=== PATIENT | female | born 1980 | race Caucasian/White ===

== ENCOUNTER 2017-10-03 13:48 | Inpatient (IN) | payer OTHER ==
--- NOTE | 2017-10-03 14:05 | EDPHY ---
H & P Source: Patient Exam Limitations: No limitations - Personal History Current Tetanus/Diphtheria Vaccine: Yes - Medical/Surgical History Hx Asthma: No Hx Chronic Respiratory Disease: No Hx Diabetes: No Hx Cardiac Disease: No Hx Renal Disease: No Hx Cirrhosis: No Hx Alcoholism: No Hx HIV/AIDS: No - Family History Significant Family History: No pertinent family hx - Social History Smoking Status: Never smoked Alcohol Use: Heavy Drug Use: None Time Seen by Provider: 10/03/17 13:55 HPI/ROS: CHIEF COMPLAINT: Cutting, depression HISTORY OF PRESENT ILLNESS: The patient is a 37-year-old female with a history of depression and alcoholism who is been sober since 2011. Last week she and her went to visit her family which caused some triggers and she began drinking again. Yesterday she became despondent and has not been talking to her . She began cutting. Today she has several deeper new cuts. One on her hand and one on her forearm. She is not answering questions. denies drug use. She has multiple abrasions elsewhere. REVIEW OF SYSTEMS: Constitutional: denies: chills, fever, recent illness, recent injury EENTM: denies: blurred vision, double vision, nose congestion Respiratory: denies: cough, shortness of breath Cardiac: denies: chest pain, irregular heart rate, lightheadedness, palpitations Gastrointestinal/Abdominal: denies: abdominal pain, diarrhea, nausea, vomiting, blood streaked stools Genitourinary: denies: dysuria, frequency, hematuria, pain Musculoskeletal: denies: joint pain, muscle pain Skin: See HPI Neurological: denies: headache, numbness, paresthesia, tingling, dizziness, weakness Hematologic/Lymphatic: denies: blood clots, easy bleeding, easy bruising Immunologic/allergic: denies: HIV/AIDS, transplant EXAM: GENERAL: Not cooperative, multiple abrasions HEAD: Atraumatic, normocephalic. EYES: Pupils equal round and reactive to light, extraocular movements intact, sclera anicteric, conjunctiva are normal. ENT: TMs normal, nares patent, oropharynx clear without exudates. Moist mucous membranes. NECK: Normal range of motion, supple without lymphadenopathy or JVD. LUNGS: Breath sounds clear to auscultation bilaterally and equal. No wheezes rales or rhonchi. HEART: Regular rate and rhythm without murmurs, rubs or gallops. ABDOMEN: Soft, nontender, normoactive bowel sounds. No guarding, no rebound. No masses appreciated. BACK: No CVA tenderness, no spinal tenderness, step-offs or deformities EXTREMITIES: Normal range of motion, no pitting or edema. No clubbing or cyanosis. NEUROLOGICAL: Cranial nerves II through XII grossly intact. Normal speech, normal gait. 5/5 strength, normal movement in all extremities, normal sensation PSYCH: Not febrile resistant to examination SKIN: Multiple shallow abrasions/self cutting. Deeper lacerations to left forearm and right hand dorsally. (Omero Smith) Constitutional: Initial Vital Signs Temperature (C) 37.1 C 10/03/17 14:09 Heart Rate 105 H 10/03/17 14:09 Respiratory Rate 18 10/03/17 14:09 Blood Pressure 120/77 10/03/17 14:09 O2 Sat (%) 94 10/03/17 14:09 O2 Delivery Mode Room Air O2 (L/minute) 98 Allergies/Adverse Reactions: erythromycin base [Erythromycin Base] Allergy (Verified 10/04/17 11:44) SWELLING/RASH Home Medications: Medication Instructions Recorded Levothyroxine [Synthroid 25 mcg 25 mcg PO DAILY06 10/03/17 (*)] Cyanocobalamin [Vitamin B12 (*)] 1,000 mcg PO DAILY 10/04/17 FLUoxetine [Prozac 20 MG (*)] 40 mg PO BID 10/04/17 Folic Acid [Folic Acid 1 MG (*)] 1 mg PO DAILY 10/04/17 Gabapentin [Neurontin 300 MG (*)] 600 mg PO BID 10/04/17 Herbals/Supplements -Info Only 1 ea PO DAILY 10/04/17 [place]-3 Fatty Acids [Fish Oil 1000 1,000 mg PO DAILY 10/04/17 mg (*)] buPROPion SR [Wellbutrin 100mg SR 100 mg PO BID 10/04/17 (*)] Medical Decision Making Procedures: Procedure: Laceration repair. Verbal consent was obtained from the patient. The 4.5 inch, superficial, y- shaped, simple laceration on the left anterior forearm was anesthetized in the usual fashion. The wound was irrigated, draped and explored to its base with a gloved finger. There were no deep structures involved. No tendon injury was identified. The wound was repaired with #9, 5 0 Prolene. Good hemostasis was achieved and patient tolerated procedure well. Clean sterile dressing applied. The procedure was performed by myself. Procedure: Laceration repair. Verbal consent was obtained from the patient. The 3 inch, simple, linear, superficial right anterior hand laceration was anesthetized in the usual fashion. The wound was irrigated, draped and explored to its base with a gloved finger. There were no deep structures involved. No tendon injury was identified. The wound was repaired with 6. Five 0 Prolene. Good hemostasis was achieved and patient tolerated procedure well. Clean sterile dressing applied. The procedure was performed by myself. (Minal Hare) ED Course/Re-evaluation: 8:15 p.m. the patient is beginning to have anxiety and tremors. I will treat with Ativan. (Omero Smith) Other Provider: [facility] care assumed from Dr. Zazueta pending mental health evaluation. 11:20 patient has been evaluated. She will be admitted to [address] under [employer], I have completed the EMTALA (Wolfgang Min) - Data Points Laboratory Results: Laboratory Results 10/03/17 14:20 10/03/17 14:20 Medications Given: Discontinued Medications Ibuprofen (Motrin) 600 mg PO EDNOW ONE Stop: 10/04/17 00:12 Last Admin: 10/04/17 00:22 Dose: 600 mg Lorazepam (Ativan) 2 mg PO EDNOW ONE Stop: 10/03/17 20:16 Last Admin: 10/03/17 20:21 Dose: 2 mg Lorazepam (Ativan) 2 mg PO ONCE ONE Stop: 10/04/17 00:18 Last Admin: 10/04/17 00:22 Dose: 2 mg Lorazepam (Ativan) 1 mg PO EDNOW ONE Stop: 10/04/17 08:37 Last Admin: 10/04/17 08:39 Dose: 1 mg Departure - Departure Disposition: [facility] IP Clinical Impression: Suicidal ideation, Severe major depression Condition: Fair
[2017-10-03 14:40] LABS: PLATELET COUNT 196 10^3/uL (150-400)
[2017-10-03] MEDS ORDERED: LORazepam 1 MG TAB PO ONE (20:15)
[2017-10-04] MEDS ORDERED: IBUPROFEN 600 MG TAB PO ONE (00:11)
[2017-10-04] MEDS ORDERED: LORazepam 1 MG TAB PO ONE ×2 (00:17→08:36)
[2017-10-04] MEDS ORDERED: ACETAMINOPHEN 325 MG TAB PO PRN (12:52)
[2017-10-04] MEDS ORDERED: MAG HYDROX/AL HYDROX/SIMETH 30 ML UDCUP PO PRN ×2 (12:52→13:02)
[2017-10-04] MEDS ORDERED: NICOTINE POLACRILEX 2 MG GUM B PRN (12:52)
[2017-10-04] MEDS ORDERED: MAGNESIUM HYDROXIDE 30 ML UDCUP PO PRN (12:52)
[2017-10-04] MEDS ORDERED: FLUoxetine 20 MG CAP PO SCH (13:00)
[2017-10-04] MEDS ORDERED: THIAMINE HCL 100 MG TAB PO ONE (13:02)
[2017-10-04] MEDS ORDERED: PROMETHAZINE HCL 25 MG TAB PO PRN (13:02)
[2017-10-04] MEDS ORDERED: chlordiazePOXIDE 25 MG CAP PO PRN ×2 (13:02→14:02)
[2017-10-04] MEDS ORDERED: IBUPROFEN 200 MG TAB PO PRN (13:02)
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
--- NOTE | 2017-10-04 13:15 | ASMTTCLDSP ---
TLC Discharge Disposition Disposition: Answers: Admit Disposition Notes: Notes: Admit [facility] Discharge Concerns/Recommendations: Notes: In consultation with [facility] ED physician, Alexander Min MD and on-call behavioral health provider, Javid Simmons NP, both concurred that pt appears to meet 27-65 criteria requiring psychiatric hospitalization as pt appears to be at risk of harm to self due to a mental illness condition. Pt was given the 3N prohibited belongings list while in the ED. Was patient given the Answers: Yes Inpatient Behavioral Health Prohibited Belongings List while in the ED? For inpatient Javid Simmons NP admission, the following psychiatrist agreed to accept patient for admission to Behavioral Health ([facility]): Type of Hold: Answers: M1/72-hour Hold Hold initiated by: Answers: Police Date Signed: 10/04/2017 01:14 PM Electronically Signed By:Bryant Reynoso
[2017-10-04] MEDS ORDERED: LORazepam 0.5 MG TAB PO PRN (13:26)
[2017-10-04] MEDS: chlordiazePOXIDE 25 MG CAP PO SCH ×2 (15:02→21:23)
[2017-10-04] MEDS: FLUoxetine 20 MG CAP PO SCH (16:07)
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
[2017-10-04] MEDS: traZODone 50 MG TAB PO SCH (21:23)
[2017-10-05] MEDS: MULTIVITAMINS 1 EACH TAB PO SCH (08:40)
[2017-10-05] MEDS: FLUoxetine 20 MG CAP PO SCH (08:40)
[2017-10-05] MEDS: FOLIC ACID 1 MG TAB PO SCH (08:41)
[2017-10-05] MEDS: THIAMINE HCL 100 MG TAB PO SCH (08:41)
[2017-10-05] MEDS: chlordiazePOXIDE 25 MG CAP PO SCH (08:41)
[2017-10-05] MEDS ORDERED: LEVOTHYROXINE 25 MCG TAB PO SCH (10:00)
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
--- NOTE | 2017-10-05 12:56 | ASMTBHMTP ---
Master Treatment Plan Master Treatment Plan Answers: Depressed Mood with for: Suicidal Ideation Date: 10/05/2017 Diagnosis on Admission: Major Depressive Disorder, Recurrent, Severe 296.33 (F33.2) Expected length of stay: 3-5 days Reason for admission: Notes: Client is a 37 yoa female with a history of depression and alcohol dependence with a recent alcohol relapse. Pt was brought to [facility] ED by her (Yung- [phone]), after client had made several cuts to herself. Pt endorsed having suicidal ideation but denied any current plan and agreed to contract for safety in a hospital setting. Client's current out-patient providers are Lily Lucio NP and PCP Dr. Domenico Mcgee. Patient has a history of Alcohol Use Disorder, currently in recent relapse following 5.5-6 years of sobriety Patient's stated presenting problems: Notes: "I was sick...." Patient's goals for treatment: Notes: "To get better." Patient's strengths: Notes: "don't really know." Identify supports outside of hospital: Notes: Family and Friends Discharge criteria: Notes: Suicidal Ideation will resolve and patient will have a plan to safely manage recurrent suicidal ideation. Initial disposition plan/considerations: Notes: "to return to my house in [place], [place]." Master Treatment Plan Required Signatures Psychiatrist signature: Answers: JUDSON RossP: RN on-shift signature: Answers: RN: Patient signature: Answers: Patient: Date Signed: 10/05/2017 12:55 PM Electronically Signed By:Enrike Viera
--- NOTE | 2017-10-05 14:19 | SOAPPROG ---
SOAP Progress Note Assessment/Plan: Assessment: Major depressive disorder, Alcohol use disorder in a controlled environment. Patient is improving (see subjective/objective note). Patient could benefit from continued hospitalization for observation for safety and medication evaluation. Plan: Review psychotropic medication treatment informed consent and recommendations. After reviewing options, risk and benefits, patient agrees to continue medications with the following changes. No medication changes at this time as more time is needed to determine ongoing tolerability and efficacy. Plan is to continue to observe patient for response and side effects from medications, and ongoing monitoring and evaluation. Next steps are for patient to meet with healthcare project manager to plan a safe discharge plan and establish outpatient services for ongoing treatment. Consider discharge on if patient is in stable condition, safe, and has a safe discharge plan. PSYCHOTROPIC MEDICATION TREATMENT INFORMED CONSENT and RECOMMENDATIONS: Review nature of condition, diagnosis, and prognosis. Review nature and purpose of psychotropic medication treatment. Review type of psychotropic medications being ordered. Review risk and benefits of psychotropic medication treatment. Review probable length of time patient will need to take medications. Review risk and benefits of not undergoing psychotropic medication treatment. Review alternative treatments to psychotropic medications. Review psychotropic medications contraindications, drug-drug interactions, side effects, and importance of reporting any side effects to a psychiatric provider or nurse during inpatient hospitalization, and upon discharge to patients psychiatric outpatient provider, primary care provider, or other health tree care foreman. Review importance of asking a nurse, psychiatric provider, or primary care provider any questions or problems concerning the psychotropic medications. Verify patient understands the information that has been provided, and understands, accepts, and agrees to psychotropic medications. Review patients safety plan and importance of patient to report to staff while hospitalized if patient is ever a danger to self/others, or unable to care for self, and upon discharge, the importance for patient to contact [facility] or [facility], or go to the nearest emergency room, if patient is ever a danger to self/others, or unable to care for self. Recommend that upon discharge patient establish medication management treatment with a psychiatric provider, establishes routine therapy appointments, and follow-up with primary care provider. Verify patient understands and agrees to these recommendations. 10/05/17 14:19 Subjective: Following up with patient for evaluation of depression, anxiety, and safety. Patient reports, "Feel tired after going through all of this." Patient expresses the following psychiatric symptoms: "none." Patient reports she plans to re-connect with her AA group after discharge, and plans to attend at least 3 meetings per week. Patient describes having a psychiatric provider that she plans to re-establish medication management with after discharge. Objective: Vital Signs Temp Pulse Resp BP Pulse Ox 36.3 C 109 H 12 115/75 97 10/05/17 09:33 10/05/17 09:33 10/05/17 09:33 10/05/17 09:33 10/05/17 09:33 NURSING REPORT: Consulted with nursing for update on patients progress in treatment. Nurses report patient is engaged in treatment, is attending groups, slept 12 hours, expresses the following psychiatric symptoms: mild anxiety, exhibits the following psychiatric symptoms: none, is eating all meals, is taking medications as prescribed with no report of side effects, with no S/S of SEs and denies SI. 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 The patient presents casually dressed and with good hygiene, and looks stated age. Patient is sitting, posture is upright, and position is relaxed. Patient appears awake, alert, and responds appropriately and reasonably during interview. Patient is engaged, relates well to interviewer, and emotional facial expression is appropriate to situation and changes appropriately with topic. Patient is cooperative, makes comfortable eye contact, and movements are voluntary, deliberate, coordinated, and smooth and even with no inappropriate movements. Patient makes laryngeal sounds effortlessly and shares conversation appropriately; pace of conversation is appropriate, and stream of talking is fluent; articulation is clear and understandable; word choice is effortless and appropriate for education level; completes sentences, occasionally pausing to think; rate is appropriate for interview and setting, and volume is low and tone is soft. Patient reports mood as okay. Patients affect is stable with full variable range, congruent with mood, and appropriate to speech and circumstances. Patient has linear and logical thinking, with no loose associations, tangential thought, thought blocking, concrete thinking, or any other signs of formal thought disorder. Patient denies suicidal and homicidal ideation, and denies hallucinations and delusions. Patient appears to be a reliable historian with sound judgement and good insight into current condition. Patient has no apparent dysfunction in recent or remote memory noted , and no evidence of gross cognitive dysfunction noted at any point during the interview. - Time Spent With Patient Time Spent With Patient: 25 minutes, met with patient individually and met with patient's and patient per patient's request. - Pending Discharge Pending Discharge Within 24 Hours: Yes Pending Discharge Within 48 Hours: No Pending Discharge Date: 10/06/17 Pending Discharge Time: 11:00 ICD10 Worksheet Patient Problems: Problems Problem Status Onset Alcohol use disorder, mild, in controlled environment Acute Severe major depression Acute
[2017-10-05] MEDS: traZODone 50 MG TAB PO SCH (20:22)
[2017-10-05] MEDS ORDERED: chlordiazePOXIDE 25 MG CAP PO SCH (21:00)
[2017-10-06 06:19] VITALS: BP 91/52
[2017-10-06] MEDS: THIAMINE HCL 100 MG TAB PO SCH (07:58)
[2017-10-06] MEDS: FOLIC ACID 1 MG TAB PO SCH (07:59)
[2017-10-06] MEDS: MULTIVITAMINS 1 EACH TAB PO SCH (07:59)
[2017-10-06] MEDS: FLUoxetine 20 MG CAP PO SCH (07:59)
--- NOTE | 2017-10-06 08:43 | ASMTBHDC ---
Notes Note: Notes: CC tries to confirm out-patient appts, see below. Client presents as "doing better," than previous days. Follow up with: Dr. Domenico Mcgee (PCP) [id number], [place] [address] Next Appt: TuesdayOctober 10 (10/10/17) at 10am Petra Roblero MD Therapist Next Appt: TBD Due to client discharging (short length of stay), CC was unable to confirm some follow up appointments Client and family NEED to follow up with their providers as listed above. Date Signed: 10/06/2017 08:42 AM Electronically Signed By:Enrike Viera
[2017-10-06] MEDS ORDERED: chlordiazePOXIDE 25 MG CAP PO SCH (09:00)
--- NOTE | 2017-10-06 13:34 | BDS ---
[f rep st] BEHAVIORAL HEALTH DISCHARGE SUMMARY REASON FOR ADMISSION: Pertinent data from ED note dated 10/03/2017. The patient arrived at the ED reporting that, last week, she and her went to visit her family, which caused some triggers, and she began drinking again. Yesterday, she became despondent, and was not talking to her . She began cutting. Pertinent data from psychiatric admission assessment dated 10/04. The patient was admitted involuntarily on an M1 hold, due to being a danger to herself, and was hospitalized for safety, crisis stabilization, medication evaluation. The patient describes circumstances that led to her current hospitalization as hanging around her family that drank; this triggered her, and she began drinking. The patient reported she had been sober since 2016 , and was very frustrated that she relapsed. ADMITTING DIAGNOSES: Severe major depression; alcohol intoxication; alcohol use disorder, mild, in controlled environment. ADMISSION PHYSICAL EXAM: The patient was seen by Dr. Branch on 10/05/2017, for an Internal Medicine consultation. Reason for referral was medical clearance for inpatient Behavioral Health stay. Per Dr. Branch's note, he reported he saw no medical contraindications to the patient's continued stay on the inpatient behavioral health unit, or to any psychiatric medications or procedures. For further details, please refer to Dr. Branch's note dated 2017. ADMISSION LABS: From the emergency department, CBC showed an elevated white blood cell count at 9.73. There was no left shift. Serum chemistries showed normal renal function and electrolytes. Glucose was slightly low at 63. Hemoglobin A1c was normal at 5.4. AST and ALT were mildly elevated at 125 and 75. Liver function tests were otherwise within normal limits. Lipid panel showed a low LDL at 54, and a high HDL at 125. test negative. HOSPITAL COURSE: The most prominent symptoms and behaviors while the patient was here were depression and alcohol withdrawal. Treatment modalities utilized were as follows: Milieu and group therapy, CIWA protocol during the patient's hospitalization to monitor alcohol withdrawal symptoms. Librium 25 mg p.o. t.i.d. was started to target alcohol withdrawal symptoms, was tolerated with no report of side effects, and with good response. This medication was tapered; on day 2, the patient received Librium 25 mg p.o. twice daily, and, on day 3, patient received Librium 25 mg p.o. daily. The patient was on Prozac 40 mg at time of admission. The patient reported she had been at this dose for several months. The patient agreed to Prozac 60 mg p.o. daily. Medication was started to target depression symptoms, was tolerated with no report of side effects, and with good response. The patient reported difficulty sleeping due to depression. Trazodone 50 mg p.o. q.h.s. was started to target insomnia and depression symptoms. Medication was tolerated with no report of side effects, and with good response. The patient has improved considerably, with no signs of psychiatric symptoms, and no psychiatric symptoms expressed at time of discharge. The patient reports she has improved since admission, states to be in stable condition, feels safe to discharge, and contracts for safety. The patient's response to treatment was good. There were no adverse or unexpected results of treatment. The patient was safe throughout her stay, active in treatment, engaged in groups, and was appropriate with staff. The treatment team consensus is the patient is in stable condition, and is safe to discharge today. CONDITION AT DISCHARGE: Patient is in stable condition and is no longer a danger to self or others, and is not gravely disabled due to mental illness. Patient is no longer in need of inpatient level of care, and can be safely and effectively treated within the community. The patients level of risk at time of discharge is low based on the risk assessment below following this discharge summary. MSE: The patient is casually dressed and with good hygiene, and looks stated age. Patient is sitting, posture is upright, and position is relaxed. Patient appears awake, alert, and responds appropriately and reasonably during interview. Patient is engaged, relates well to interviewer, and emotional facial expression is appropriate to situation and changes appropriately with topic. Patient is cooperative, makes comfortable eye contact, and movements are voluntary, deliberate, coordinated, and smooth and even with no inappropriate movements. Patient makes laryngeal sounds effortlessly and shares conversation appropriately; pace of conversation is appropriate, and stream of talking is fluent; articulation is clear and understandable; word choice is effortless and appropriate for education level; completes sentences, occasionally pausing to think; rate and volume are appropriate for interview and setting. Patient reports mood as euthymic. Patients affect is stable with full variable range, congruent with mood, and appropriate to speech and circumstances. Patient has linear and logical thinking, with no loose associations, tangential thought, thought blocking, concrete thinking, or any other signs of formal thought disorder. Patient denies suicidal and homicidal ideation, and denies hallucinations and delusions. Patient appears to be a reliable historian with sound judgement and good insight into current condition. Patient has no apparent dysfunction in recent or remote memory noted , and no evidence of gross cognitive dysfunction noted at any point during the interview. DISCHARGE DIAGNOSES: Major depressive disorder; alcohol use disorder. DISCHARGE MEDICATIONS: Prozac 60 mg p.o. daily (a prescription for 30 days was provided at discharge), trazodone 50 mg p.o. q.h.s. (a 30-day prescription was provided at discharge). Prescriptions were reviewed with the patient at time of discharge for accuracy. DISPOSITION: The patient left hospital independently and voluntarily with her , and plans to return home to her and her son. FOLLOWUP: The patient reports she plans to engage in AA meetings. She reports that she has gone to AA meetings in the past, with good response, for continuing her abstinence from alcohol. The patient reports she knows of several AA meetings in the area, and plans to attend at least 3 per week. The patient plans to follow up with her addiction therapist, Petra Roblero, in [place], [place], after discharge, and the patient plans to have her primary care provider manage her current medications. continuity coordinator reports the appropriate outpatient follow-up services have been established and outpatient appointments have been scheduled. The patient received written instructions with times and dates of outpatient follow-up appointments. The following follow-up recommendations were provided to the patient at discharge: Continue psychotropic medications as prescribed and attend appointments as scheduled. Report any side effects to a psychiatric outpatient provider, a primary care provider, or other health childcare attendant. Address any questions or problems concerning the psychotropic medications with a psychiatric outpatient provider, a primary care provider, or other health childcare attendant. Contact [facility] or [facility], or go to the nearest emergency room, if you are ever a danger to yourself/others, or unable to care for yourself. As soon as possible, establish a routine medication management treatment with a psychiatric provider, establish routine therapy appointments, and follow-up with a primary care provider. LEGAL COURSE: The patient was admitted on an M1 hold, for involuntary psychiatric hospitalization. The patient discharged today voluntarily and independently. ATTITUDE AT TIME OF DISCHARGE: The patient's attitude was positive at time of discharge, and the patient reports looking forward to discharging today. The patient reports that she feels safe to discharge, is no longer a danger to herself or others, is in stable condition, and contracts for safety. The patient states that she will continue medications as prescribed, and establish medication management treatment with an outpatient provider after discharge. The patient reports she understands the information as provided to her, and she understands, accepts, and agrees to psychotropic medications. The patient reports internal protective factors as the coping skills she has learned while hospitalized here, and she plans to continue to practice these coping skills after discharge. The patient reports external protective factors as her son and her . The patient describes looking forward to spending time with her son after discharge today. The patient describes future plans as to continue school, and ultimately get a degree in [employer]. The patient reports she has completed her safety plan, and has reviewed her safety plan with her nurse. The patient reports her family and friends look forward to her discharging today. LABS AND STUDIES: There were no pending labs or studies at time of discharge. ADVANCED DIRECTIVES: There were no advanced directives on file, and the patient was Full code during hospitalization. The following psychotropic medication treatment informed consent and recommendations were provided to the patient at time of discharge. Patient reports she understands, accepts, and agrees to the information that has been provided. PSYCHOTROPIC MEDICATION TREATMENT INFORMED CONSENT and RECOMMENDATIONS: Review nature of condition, diagnosis, and prognosis. Review nature and purpose of psychotropic medication treatment. Review type of psychotropic medications being prescribed. Review risk and benefits of psychotropic medication treatment. Review probable length of time will need to take medications. Review risk and benefits of not undergoing psychotropic medication treatment. Review alternative treatments to psychotropic medications. Review psychotropic medications contraindications, side effects, and importance of reporting any side effects to a psychiatric provider, primary care provider, or other health childcare attendant. Review importance of her asking a psychiatric provider or primary care provider any questions or problems concerning the psychotropic medications. Review importance of reporting to a psychiatric provider, primary care provider, or other health childcare attendant if she plans to or becomes . Review safety plan and the importance to contact [facility] or [facility] , or go to the nearest emergency room, if ever a danger to yourself/others, or unable to care for yourself. Recommend upon discharge to establish routine medication management treatment with a psychiatric provider, establish routine therapy appointments, and follow-up with a primary care provider. Verify patient understands, accepts, and agrees to the information that has been provided. SUICIDE ASSESSMENT FIVE-STEP EVALUATION AND TRIAGE (1) RISK FACTORS: (a) Suicidal behavior: no history of suicide attempts (b) Current/past psychiatric disorders: major depression (c) Stout symptoms: mild anxiety (d) Family history: none (e) Precipitants/Stressors/Interpersonal: none (f) Change in treatment: discharge from psychiatric hospital (g) Access to firearms: none (2) PROTECTIVE FACTORS: (a) Internal: coping skills (b) External: son and (3) SUICIDAL INQUIRY: (a) Ideation: none (b) Plan: none (c) Behaviors: none (d) Intent: none (4) RISK LEVEL: Low: modifiable risk factors, strong protective factors; no SI or self-injurious behavior. Intervention: treatment plan to reduce symptoms: medications and therapy, provided emergency/crisis numbers, follow-up plan. /[id number]/[id number]
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
== END 2017-10-06 09:43 | disposition home or self-care (01) | DRG 881 ==
LOC: BBEH 10-04 12:45
PROVIDERS: ADMIT Registered Nurse; ATTEND Registered Nurse
DX: F32.9 Major depressive disorder, single episode, unspecified (principal); F10.239 Alcohol dependence with withdrawal, unspecified; S51.812A Laceration without foreign body of left forearm, initial encounter; S61.411A Laceration without foreign body of right hand, initial encounter; X78.9XXA Intentional self-harm by unspecified sharp object, initial encounter; F10.229 Alcohol dependence with intoxication, unspecified; E03.9 Hypothyroidism, unspecified; K70.10 Alcoholic hepatitis without ascites; Y90.8 Blood alcohol level of 240 mg/100 ml or more
CPT/HCPCS: 80305; G0480

== ENCOUNTER 2017-12-26 06:50 | Observation (INO) | payer OTHER ==
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
[2017-12-26] MEDS ORDERED: LR 1,000 ML IV ONE (06:55)
[2017-12-26] MEDS ORDERED: ceFAZolin 2 GM/DEXTROSE 100 ML IV ONE (06:55)
[2017-12-26] MEDS ORDERED: LIDOCAINE 1% 2 ML INJ ID PRN (06:55)
[2017-12-26] MEDS ORDERED: BUPIVACAINE 0.5% 30 ML SDV ONE (07:43)
[2017-12-26] MEDS ORDERED: MIDAZOLAM 2 MG/2 ML VIAL IVP ONE (08:04)
--- NOTE | 2017-12-26 08:04 | PDANEPAE ---
ANE History of Present Illness 37 yo for karime ANE Past Medical History - Cardiovascular History Hx Hypertension: No Hx Arrhythmias: No Hx Chest Pain: No Hx Coronary Artery / Peripheral Vascular Disease: No Hx CHF / Valvular Disease: No Hx Palpitations: No - Pulmonary History Hx COPD: No Hx Asthma/Reactive Airway Disease: No Hx Recent Upper Respiratory Infection: No Hx Oxygen in Use at Home: No Hx Sleep Apnea: No Sleep Apnea Screening Result - Last Documented: Negative - Neurologic History Hx Cerebrovascular Accident: No Hx Seizures: No Hx Dementia: No - Endocrine History Hx Diabetes: No - Renal History Hx Renal Disorders: No - Liver History Hx Hepatic Disorders: No - Neurological & Psychiatric Hx Hx Neurological and Psychiatric Disorders: Yes Neurological / Psychiatric History Comment: depression,anxiety - Cancer History Hx Cancer: No - Congenital Disorder History Hx Congenital Disorders: No - GI History Hx Gastrointestinal Disorders: No - Other Health History Other Health History: pt has significant hx of etoh abuse - Chronic Pain History Chronic Pain: No - Surgical History Prior Surgeries: 2014 shoulder surgery ANE Review of Systems Review of Systems: - Exercise capacity METS (RN): 5 METS ANE Patient History - Allergies Allergies/Adverse Reactions: erythromycin base [Erythromycin Base] Allergy (Verified 11/22/17 17:42) SWELLING/RASH - Home Medications Home medications: home medication list seen and reviewed Home Medications: Levothyroxine [Synthroid 25 mcg (*)] 25 mcg PO DAILY06 10/03/17 [Last Taken ] Cyanocobalamin [Vitamin B12 (*)] 1,000 mcg PO DAILY 10/04/17 [Last Taken 1 Week Ago ~12/19/17] Folic Acid [Folic Acid 1 MG (*)] 1 mg PO DAILY 10/04/17 [Last Taken 1 Week Ago ~ 12/19/17] Gabapentin [Neurontin 300 MG (*)] 900 mg PO TID 10/04/17 [Last Taken 1 Day Ago ~ 12/25/17] Herbals/Supplements -Info Only 1 ea PO DAILY 10/04/17 [Last Taken 1 Week Ago ~] [place]-3 Fatty Acids [Fish Oil 1000 mg (*)] 1,000 mg PO DAILY 10/04/17 [Last Taken 1 Week Ago ~12/19/17] FLUoxetine [Prozac 20 MG (*)] 80 mg PO DAILY 11/15/17 [Last Taken 12/26/17] QUEtiapine FUMARATE [Seroquel 100 mg (*)] 100 mg PO HS 11/15/17 [Last Taken 1 Day Ago ~12/25/17] - NPO status NPO Status: no food or drink >8 hours NPO Since - Liquids (Date): 12/26/17 NPO Since - Liquids (Time): 05:30 NPO Since - Solids (Date): 12/25/17 NPO Since - Solids (Time): 19:30 - Smoking Hx Smoking Status: Former smoker - Family Anes Hx Family Hx Anesthesia Complications: mother and brother slow to wake up ANE Labs/Vital Signs - Vital Signs Blood Pressure: 104/67 Heart Rate: 67 Respiratory Rate: 16 O2 Sat (%): 94 Height: 5 ft 4 in Weight: 54.431 kg ANE Physical Exam - Airway Neck exam: FROM Mallampati Score: Class 2 Mouth exam: normal dental/mouth exam - Pulmonary Pulmonary: no respiratory distress - Cardiovascular Cardiovascular: regular rate and rhythym - ASA Status ASA Status: II ANE Anesthesia Plan Anesthesia Plan: general endotracheal anesthesia, spinal
[2017-12-26] MEDS ORDERED: PROPOFOL/EMULSION 500 MG/50 ML BOTTLE IV ONE ×2 (08:14→09:40)
[2017-12-26] MEDS ORDERED: fentaNYL 100 MCG/2 ML INJ ONE ×2 (08:14→10:46)
[2017-12-26] MEDS ORDERED: SCOPOLAMINE HYDROBROMIDE 1 MG/3 DAYS PATCH TD SCH (08:15)
--- NOTE | 2017-12-26 08:15 | PDHPUP ---
History & Physical Update H&P update statement: This history and physical update is based on an assessment of the patient which was completed after admission or registration (within 24 hours), but prior to the surgery/procedure. H&P update: H&P reviewed & patient examined, no change in patient's condition since H&P completed
[2017-12-26] MEDS ORDERED: METOCLOPRAMIDE 10 MG/2 ML VIAL ONE (08:18)
[2017-12-26] MEDS ORDERED: DEXAMETHASONE 4 MG/ML VIAL ONE (08:18)
[2017-12-26] MEDS ORDERED: ROCURONIUM 100 MG/10 ML VIAL ONE (08:18)
[2017-12-26] MEDS ORDERED: morphINE PF 5 MG/10 ML INJ ONE (08:19)
[2017-12-26] MEDS ORDERED: NEOSTIGMINE METHYLSULFATE 5 MG/5 ML SYR ONE (10:26)
[2017-12-26] MEDS ORDERED: GLYCOPYRROLATE 0.2 MG/1 ML VIAL ONE ×2 (10:26)
[2017-12-26] MEDS ORDERED: ONDANSETRON 4 MG/2 ML VIAL ONE (10:29)
[2017-12-26] MEDS ORDERED: ONDANSETRON 4 MG/2 ML VIAL IVP PRN ×2 (10:36→10:45)
[2017-12-26] MEDS ORDERED: NALOXONE HCL 0.4 MG/ML INJ IVP PRN (10:45)
[2017-12-26] MEDS ORDERED: PROMETHAZINE HCL 25 MG/ML INJ IVP PRN (10:45)
[2017-12-26] MEDS ORDERED: HYDROmorphONE/DILAUDID 2 MG/ML INJ IVP PRN (10:45)
--- NOTE | 2017-12-26 10:46 | POSTANESTH ---
Post Anesthetic Evaluation Cardiovascular Status: Normal, Stable Respiratory Status: Tx Decrease in SpO2 Level of Consciousness/Mental Status: Can Participate in Eval Pain Control: Inadeq, Add Tx Required Nausea/Vomiting Control: Adequate, Prn Tx Ordered Complications Possibly Related to Anesthesia: None Noted
[2017-12-26] MEDS: fentaNYL 100 MCG/2 ML INJ IVP PRN ×3 (10:48→11:35)
[2017-12-26] MEDS ORDERED: LR 1,000 ML IV SCH (11:00)
[2017-12-26] MEDS ORDERED: HYDROCODONE/APAP 5/325 TAB ONE (11:25)
[2017-12-26] MEDS: HYDROCODONE/APAP 5/325 TAB PO PRN ×4 (11:34→21:04)
--- NOTE | 2017-12-26 12:56 | GOP ---
DATE OF OPERATION: SURGEON: Daniele Bethea MD PREOPERATIVE DIAGNOSIS: Mesenteric hematoma. POSTOPERATIVE DIAGNOSIS: Mesenteric hematoma. PROCEDURE PERFORMED: DIAGNOSTIC LAPAROSCOPY FINDINGS: ILEAL MESENTERIC HEMATOMA INDICATIONS: Patient was in the operating room undergoing a laparoscopic hysterectomy by Dr. Cummings. I was consulted because of a hematoma developing in the small bowel mesentery. I evaluated this and it appeared to be in the mesentery of the terminal ileum. There was no pulsatile flow and the hematoma was easily picked up and movable. I was a little concerned that it could be a GIST tumor in the mesentery rather than a simple hematoma because they did not notice any definite trauma to the mesentery with trocar insertion. After examination, we elected to watch the area and proceed with the other part of the surgery and then I would come back later and re-evaluate which is what we did. DESCRIPTION OF PROCEDURE: After completion of the hysterectomy portion, I came back in the room and re-scrubbed in. At that point, it appeared that the hematoma was less and actually decreased in size. It did no longer feel quite as tense or masslike as it had and the bowel itself was totally viable. We re- examined the bowel mesentery from multiple angles and it appeared to be stable. Elected at that point to simply watch this hematoma. She will need a CAT scan postoperatively and then a probable followup CT scan down the line to make sure we have not missed a mesenteric tumor. She will get some serial hematocrits over her hospital stay to assure that she is not having any further bleeding. The remainder of the case would be dictated by Dr. Cummings. PROCEDURE: Diagnostic laparoscopy. /[id number]/MODL MTDD
[2017-12-26] MEDS ORDERED: GABAPENTIN 300 MG CAP PO SCH (16:00)
[2017-12-26] MEDS ORDERED: diphenhydrAMINE 50 MG CAP PO PRN (17:34)
[2017-12-26] MEDS ORDERED: GABAPENTIN 300 MG CAP PO PRN (18:14)
--- NOTE | 2017-12-26 19:12 | SOAPPROG ---
SOAP Progress Note Assessment/Plan: Assessment: pod#0 s/p TLH for persistent cervical dysplasia with mesenteric hematoma - stable h and h - uncomplicated post operative course - continue close observation of vital signs and h and h - increase activity Plan: 12/26/17 19:09 Subjective: patient is doing great. pain is well controlled. primary complaint is itching from the pain meds. long discussion about surgical course and mesenteric hematoma. vital signs and labs have been stable and reassuring. discussed plan for continued close observation. questions answered. patient is tolerating diet. has not ambulated yet. Objective: Vital Signs Temp Pulse Resp BP Pulse Ox 36.7 C 69 16 92/58 L 94 12/26/17 15:00 12/26/17 15:00 12/26/17 15:00 12/26/17 15:00 12/26/17 15:00 Laboratory Results 12/26/17 15:15 12/25/17 12/26/17 12/27/17 05:59 05:59 05:59 Intake Total 1320 Output Total 1075 Balance 245 Physical Exam - Physical Exam General Appearance: WD/WN, alert, no apparent distress Respiratory: chest non-tender, lungs clear, normal breath sounds Cardiac/Chest: normal peripheral pulses, regular rate, rhythm Abdomen: normal bowel sounds, non-tender, soft, other (incisions clean dry and intact) Skin: normal color, warm/dry Extremities: normal range of motion, non-tender, normal inspection, normal capillary refill Neuro/Psych: no motor/sensory deficits, alert, normal mood/affect, oriented x 3 ICD10 Worksheet Patient Problems: Problems Problem Status Onset Alcohol use disorder, mild, in controlled environment Acute Severe major depression Acute
--- NOTE | 2017-12-26 20:13 | GOP ---
DATE OF OPERATION: 12/26/2017 SURGEON: Jackie Cummings DO [employer] BIOLOGIST: Blu Galicia MD. ANESTHESIA: Spinal with general anesthesia. PREOPERATIVE DIAGNOSIS: Persistent cervical dysplasia. POSTOPERATIVE DIAGNOSIS: 1. Persistent cervical dysplasia. 2. Mesenteric hematoma. PROCEDURE PERFORMED: Total laparoscopic hysterectomy with bilateral salpingectomy. FINDINGS: 1. Exam under anesthesia: Mobile small uterus with no adnexal masses. 2. Laparoscopic findings: Small mobile uterus. More blood than expected in the abdominal cavity up on entry to the abdominal cavity with laparoscope. Area of hematoma in the mesentery noted shortly a fter entering the abdominal cavity. Remained stable during the remainder of the surgery. Evaluated by Dr. Daniele Bethea intraoperatively. SPECIMENS: Bilateral fallopian tubes and uterus. ESTIMATED BLOOD LOSS: 50 cc. INDICATIONS: Patient is a 37-year-old 1, para 0-1-0-1, who has a longstanding history of cer vical dysplasia. She has had a history of 5 LEEPs and her cervix is essentially non-existent. She h as had persistent positive HPV Paps with negative Pap smears. Colposcopies have all been low grade. Patient's family status is complete and is requesting definitive therapy with a total laparoscopic h ysterectomy. Risks and benefits of the procedure were reviewed extensively with the patient and laly ent was properly consented. DESCRIPTION OF PROCEDURE: Patient was taken to the operating room with intravenous fluids in place. She was given 2 g of Ancef intravenously and seated on the operating room table where spinal anesthe rebel was obtained. She was then repositioned into the dorsal lithotomy position with the [facility] r[facility]ups and prepped and draped in the normal sterile fashion. Exam under anesthesia revealed a mobile very small uterus with a very short cervix. A speculum was then placed in the patient's vagina. A s monica-toothed tenaculum was used to grasp the anterior lip of the cervix. The cervix was then sounde d to 4.5 cm. A DILEEP uterine manipulator was assembled with the trachelectomy tip and a small cup and introduced and inserted without difficulty. The uterus was easily manipulated. A Townsend catheter was already in place. Attention was then turned to the patient's abdomen, where a 5 mm skin incision was then made in the umbilicus and the abdominal skin was tented up and a 5 mm lapa roscopic was then inserted with the Optiview into the patient's abdomen. Great care was taken and th e finger was placed just lateral to the tip of the trocar, taking great care to place the laparoscope due to the patient's thinness. The abdomen was then insufflated with CO2 gas until an adequate pneu moperitoneum was achieved. There appeared to be a moderate amount of blood in the patient's abdomen and the area underneath the trocar insertion site was explored and found to be unremarkable. A 5 mm skin incision was then made in the patient's right lower quadrant and a 5 mm trocar was then advanced into the patient's abdomen under direct visualization. The camera was then inserted in the patient' s right lower quadrant port and the umbilical trocar insertion site was evaluated. There was not a s ignificant amount of bleeding noted to be happening, but it still appeared to be more than normal blo od within the pelvis. So, a third 5 mm trocar skin incision was then made in the patient's left lowe r quadrant and a trocar was advanced into the patient's abdomen under direct visualization. At that time, the scope was then replaced into the patient's umbilical port and there appeared to be a hemato ma right underneath the trocar insertion site. No active bleeding was noted. It did appear to be ex panding initially. General Surgery was consulted. Vital signs remained stable and no additional toño e bleeding was noted. The pelvis was irrigated and cleared of all clots and again, no pooling of blo od was noted at that time. General Surgery did come in and evaluated the area and explored it initia lly and did not see any bowel damage and felt that it was potentially mesenteric and recommended cont inued close surveillance. We proceeded with the hysterectomy at that time as the patient remained st able. The uterus was freely mobile. The cup was easily palpated. A left salpingectomy was performe d with the LigaSure. The left round ligament was then clamped, cauterized, and transected. The ante rior and posterior leaflets of the broad ligament were clamped, cauterized, and transected. The blad kevin flap was created anteriorly and the left uterine arteries were then skeletonized, clamped, cauter ized, and transected. Attention was then turned to the patient's right side, where the right salping ectomy was performed and the tubes were withdrawn. The right round ligament was then clamped, cauter ized, and transected. The anterior and posterior leaflets of the broad ligament were clamped, cauter ized, and transected. A bladder flap was created anteriorly and the bladder was noted to be well rem ote from the colpotomy cup. The uterine artery was then skeletonized, clamped, cauterized, and trans ected. The additional tissue was skeletonized off the colpotomy ring and the monopolar hook was then used to perform the colpotomy. This was done without difficulty. The balloon was inflated and so, pneumoperitoneum was maintained. Once the cervix was removed with colpotomy, the uterus was then wit hdrawn into the vagina and handed off to the specimen table. A glove stuffed with a Ray-Cass was inse rted into the patient's vagina and a pneumoperitoneum was achieved. The upper abdomen was explored a gain and the mesenteric hematoma appeared to be unremarkable, not bleeding actively, and not expandin g. So, we continued with the closure of the vaginal cuff. The 5 mm trocar in the left lower quadran t was removed and the 10 mm trocar was then introduced and the V-Loc suture was then introduced and t he vaginal cuff was closed in a running fashion. Hemostasis was assured. The pelvis was irrigated a nd cleared of all clots and debris. The pedicles were all hemostatic. The vaginal cuff remained hem ostatic and appeared to be intact. Bilateral ureteral peristalsis was noted. General Surgery was th en called in again, who then explored the patient's mesentery and around the bowel and did not feel t hat the hematoma had expanded. In fact, had shrunk. Patient continued to remain stable throughout t he procedure and so, decision was made at that time not to open to manage the hematoma. The fascial closure device was inserted in the 10 mm trocar and the fascia was closed with 0 Vicryl under direct visualization and the other trocar sites were removed after the CO2 gas was expressed. The skin inci sions were then closed with 4-0 Monocryl in a subcuticular fashion. The sponge and glove were remove d from the patient's vagina. A speculum was placed. No bleeding was noted. Patient was then return ed to the dorsal supine position, where she was easily awoken from anesthesia. Sponge, lap, and need le counts were correct x2. Patient was transported to the recovery room in stable condition. INTRAOPERATIVE CONSULT: Daniele Bethea MD. /[id number]/MODL
[2017-12-26] MEDS ORDERED: QUEtiapine FUMARATE 100 MG TAB PO SCH (21:00)
[2017-12-27] MEDS: HYDROCODONE/APAP 5/325 TAB PO PRN ×3 (01:45→10:59)
[2017-12-27] MEDS ORDERED: LEVOTHYROXINE 25 MCG TAB PO SCH (06:00)
[2017-12-27] MEDS ORDERED: IOPAMIDOL (ISOVUE-300) 100 ML BTL ONE (08:09)
[2017-12-27] MEDS ORDERED: FLUoxetine 20 MG CAP PO SCH ×2 (09:00)
[2017-12-27 12:35] VITALS: BP 93/66
[2017-12-27] MEDS ORDERED: KETOROLAC 30 MG/1 ML SDV IVP ONE (13:09)
--- NOTE | 2017-12-27 13:12 | SOAPPROG ---
SOAP Progress Note Assessment/Plan: Assessment/Plan: 37 Y F s/p lap/vaginal hysterectomy, possible mesenteric hematoma. Seen and examined by Dr. Bethea today. Reasonable comfortable--some mid abd tenderness. Eating. AFVSS. Labs ok. Wants to go home. Reviewed CT images and discussed with S[employer] WHEELER. Images not showing definite mass. Can follow as an outpatient. May need repeat CT at some point. 12/27/17 13:09 Objective: Vital Signs Temp Pulse Resp BP Pulse Ox 36.7 C 71 16 93/66 L 92 12/27/17 12:00 12/27/17 12:00 12/27/17 12:00 12/27/17 12:00 12/27/17 12:00 Laboratory Results 12/27/17 06:25 12/26/17 12/27/17 12/28/17 05:59 05:59 05:59 Intake Total 2120 Output Total 6866 300 Balance -255 -300 ICD10 Worksheet Patient Problems: Problems Problem Status Onset Alcohol use disorder, mild, in controlled environment Acute Severe major depression Acute
[2017-12-27] MEDS ORDERED: IBUPROFEN 600 MG TAB PO PRN (13:15)
--- NOTE | 2017-12-27 13:37 | SOAPPROG ---
SOAP Progress Note Assessment/Plan: Assessment: pod#1 s/p TLH for persistent cervical dysplasia with mesenteric hematoma - stable h and h - uncomplicated post operative course - unremarkable CT - increase activity - discharge instructions reviewed 12/27/17 13:29 Subjective: patient is doing well overall. pain is well controlled. itching has improved. had a hard time taking a deep breath earlier but has been doing better since using incentive spirometer. pulse ox was good . no vaginal bleeding. voiding without difficulty. ready to go home. reviewed discharge precautions. Objective: Vital Signs Temp Pulse Resp BP Pulse Ox 36.7 C 71 16 93/66 L 92 12/27/17 12:00 12/27/17 12:00 12/27/17 12:00 12/27/17 12:00 12/27/17 12:00 Laboratory Results 12/27/17 06:25 12/26/17 12/27/17 12/28/17 05:59 05:59 05:59 Intake Total 2120 Output Total 2375 300 Balance -255 -300 Physical Exam - Physical Exam General Appearance: WD/WN, alert, no apparent distress Neck: non-tender, full range of motion Respiratory: chest non-tender, lungs clear, normal breath sounds, other (had shortly diminished sounds which improved with incentive spirometer) Cardiac/Chest: normal peripheral pulses, regular rate, rhythm Abdomen: normal bowel sounds, non-tender, soft Skin: normal color, warm/dry, other (incisions covered) Extremities: normal range of motion, non-tender, normal inspection, normal capillary refill Neuro/Psych: no motor/sensory deficits, alert, normal mood/affect, oriented x 3 ICD10 Worksheet Patient Problems: Problems Problem Status Onset Alcohol use disorder, mild, in controlled environment Acute Severe major depression Acute
[2017-12-27] MEDS ORDERED: KETOROLAC 15 MG/1 ML SDV IVP ONE (13:45)
[2017-12-29] MEDS ORDERED: PATCH REMOVAL 1 EA PATCH TD SCH (08:04)
== END 2017-12-27 14:30 | disposition home or self-care (01) ==
LOC: F3N 06:50 → FOB 12:05
PROVIDERS: ADMIT Obstetrics & Gynecology; ATTEND Obstetrics & Gynecology
PROC: 0UT94ZZ Resection of Uterus, Percutaneous Endoscopic Approach (ICD-10-PCS; principal; 2017-12-26 08:15)
PROC: 0UT74ZZ Resection of Bilateral Fallopian Tubes, Percutaneous Endoscopic Approach (ICD-10-PCS; principal; 2017-12-26 08:15)
PROC: 0UTC4ZZ Resection of Cervix, Percutaneous Endoscopic Approach (ICD-10-PCS; principal; 2017-12-26 08:15)
PROC: 0DJV4ZZ Inspection of Mesentery, Percutaneous Endoscopic Approach (ICD-10-PCS; principal; 2017-12-26 08:15)
DX: N87.9 Dysplasia of cervix uteri, unspecified (principal); K66.1 Hemoperitoneum; F41.8 Other specified anxiety disorders; E03.9 Hypothyroidism, unspecified; N80.0 Endometriosis of uterus; N83.8 Other noninflammatory disorders of ovary, fallopian tube and broad ligament
CPT/HCPCS: 58571; 74177; 90471; G0378; 82565-PO; G0008; J0690; J1100; J1885; J2250; J2274; J2405; J2704; J2710; J2765; J3010; Q9967